=== PATIENT | male | born 1940 | race Caucasian/White ===

== ENCOUNTER 2016-04-30 07:53 | Observation (INO) | payer MEDICARE, OTHER ==
[2016-04-30 08:53] LABS: ABSOLUTE BASOPHILS # (AUTO) 0.1 10^3/uL (0.0-0.2); ABSOLUTE EOSINOPHILS # (AUTO) 0.2 10^3/uL (0.0-0.6); ABSOLUTE LYMPHOCYTES (AUTO) 1.2 10^3/uL (0.5-4.7); ABSOLUTE MONOCYTES (AUTO) 1.2 10^3/uL (0.1-1.4); ABSOLUTE NEUT (AUTO) 6.6 10^3/uL (1.7-8.2); BASOPHILS % (AUTO) 0.7 % (0-2); HEMOGLOBIN 13.2 g/dL (13.5-17.0); HGB HCT DIFFERENCE -0.4; LYMPHOCYTES % (AUTO) 13.2 % (13-45); MEAN CORPUSCULAR HEMOGLOBIN 30.7 pg (27.0-33.4); MEAN CORPUSCULAR VOLUME 93 fl (80-97); MONOCYTES % (AUTO) 13.1 % (3-13); RED CELL DISTRIBUTION WIDTH 14.5 % (11.5-14.0); WHITE BLOOD COUNT 9.3 10^3/uL (4.0-10.5)
[2016-04-30 09:16] LABS: ALANINE AMINOTRANSFERASE 35 U/L (21-72); ALKALINE PHOSPHATASE 110 U/L (38-126); ANION GAP 10 (5-19); ASPARTATE AMINO TRANSFERASE 36 U/L (17-59); BILIRUBIN,TOTAL 0.7 mg/dL (0.2-1.3); BLOOD UREA NITROGEN 27 mg/dL (7-20); CALCIUM 9.1 mg/dL (8.4-10.2); CARBON DIOXIDE 32 mmol/L (22-30); CHLORIDE 101 mmol/L (98-107); CREATINE KINASE 22 U/L (55-170); CREATININE RESULT 1.03 mg/dL (0.52-1.25); GLUCOSE 98 mg/dL (75-110); POTASSIUM 4.2 mmol/L (3.6-5.0); SODIUM 143.3 mmol/L (137-145); TOTAL PROTEIN 7.2 g/dL (6.3-8.2)
[2016-04-30] MEDS ORDERED: ASPIRIN 81 MG TABLET, CHEWABLE PO ONE (09:18)
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
[2016-04-30 09:29] LABS: TROPONIN I < 0.012 ng/mL
--- NOTE | 2016-04-30 10:22 | EKG REPORT ---
SEVERITY:- ABNORMAL ECG - ACCELERATED JUNCTIONAL RHYTHM, VS PAT WITH 2:1 CONDITION PROLONGED QT INTERVAL : Confirmed by: Huang Green 30-Apr-2016 10:22:23
[2016-04-30] MEDS ORDERED: METOPROLOL TARTRATE PF/INJ 5 MG/5 ML SDV IV ONE (16:22)
[2016-04-30] MEDS ORDERED: DILTIAZEM HCL INJ 25 MG/5 ML VIAL IV ONE (16:59)
[2016-04-30 17:31] LABS: ADD ON TESTING BLD IN LAB ACKNOWLEDGE
--- NOTE | 2016-04-30 17:44 | EKG REPORT ---
SEVERITY:- ABNORMAL ECG - SINUS OR ECTOPIC ATRIAL TACHYCARDIA CONSIDER RVH OR POSTERIOR INFARCT PROBABLE INFERIOR INFARCT, OLD BORDERLINE PROLONGED QT INTERVAL : Confirmed by: Huang Green 30-Apr-2016 17:43:13
[2016-04-30 17:54] LABS: MAGNESIUM 2.1 mg/dL (1.6-2.3)
[2016-04-30] MEDS ORDERED: ACETAMINOPHEN 325 MG TABLET PO PRN (18:02)
--- NOTE | 2016-04-30 18:31 | PDOC H&P ---
History of Present Illness Admission Date/PCP: 04/30/16 17:44 DANICA LEPE MD Patient complains of: Fast heart rate History of Present Illness: SAMIR NORTH is a 75 year old male who has a history of coronary artery disease as well as atrial fibrillation and flutter who presents with palpitations. The patient reports he woke up at 3:00 this morning with palpitations and noted heart rate be 105. The patient reportedly continued and at 6:00 he woke his and came to the hospital. Patient has had persistently heart high heart rate of 105 since presented to emergency room. He denies having any chest pain or he describes a hollow feeling. Patient does have a history of coronary artery disease and had his last PTCA in October 2015. Patient also is had problems with cardiac arrhythmias and has had cardiac ablation 2 times previously and has been cardioverted also in the past. The patient reports that he has had problems with what sounds like sick sinus syndrome and that his sotalol dose was decreased because of significant bradycardia and he was previously on 120 mg twice a day and this was decreased in the summertime to 80 mg twice a day. The patient has had cardiac enzymes 2 already and they are negative. Patient will be admitted and his sotalol dose increased up. If he develops significant bradycardia would transfer for consideration of a pacemaker however if his heart rate stays under control we will plan on sending home in the morning. Past Medical History Cardiac Medical History: Reports: Atrial Fibrillation - Paroxysmal atrial flutter, Coronary Artery Disease - Last PTCA done in October of this year, Hyperlipidema, Hypertension - off meds per pcp, Other - Hx Atrial Flutter Pulmonary Medical History: Reports: Chronic Obstructive Pulmonary Disease (COPD) EENT Medical History: Reports: Cataracts Neurological Medical History: Reports: None Endocrine Medical History: Reports: Other - Patient reports having prediabetes Renal/ Medical History: Reports: None Malignancy Medical History: Reports: None GI Medical History: Reports: Gastroesophageal Reflux Disease Musculoskeltal Medical History: Reports: Arthritis Skin Medical History: Reports: None Traumatic Medical History: Reports: None Hematology: Denies: Anemia, Sickle Cell Disease Infectious Medical History: Reports: None Past Surgical History Past Surgical History: Reports: Cholecystectomy, Orthopedic Surgery - bilat hips , rotator cuffs, back, knees, neck, carpal tunnel, big toe, Tonsillectomy Denies: Pacemaker Social History Information Source: Patient Lives with: Spouse/Significant other Smoking Status: Former Smoker - 30 years ago Frequency of Alcohol Use: None Hx Recreational Drug Use: No Drugs: None - Advance Directive Resuscitation Status: Full Code Family History Family History: Father at age 71 and had diabetes mellitus and coronary artery disease. Mother at age 91 and had diabetes mellitus as well as a CVA. Parental Family History Reviewed: Yes Children Family History Reviewed: No Sibling(s) Family History Reviewed.: No Medication/Allergy Home Medications: Allopurinol [Zyloprim 300 mg Tablet] 300 mg PO DAILY 05/26/11 Amlodipine/Atorvast Aleksander [Caduet 5 mg-40 mg Tablet] 1 tab PO DAILY 05/26/11 Cetirizine HCl [Zyrtec] 10 mg PO DAILY 05/26/11 Docosahexanoic Acid/Epa [Fish Oil Softgel] 1 cap PO DAILY 05/26/11 Esomeprazole Mag Trihydrate [Nexium] 40 mg PO DAILY 05/26/11 Furosemide [Lasix 40 mg Tablet] 40 mg PO DAILY 05/26/11 Gabapentin [Neurontin 300 mg Capsule] 300 mg PO TID 05/26/11 Levothyroxine Sodium [Synthroid 50 Mcg Tablet] 25 mcg PO DAILY 05/26/11 Metoprolol Tartrate [Lopressor 100 mg Tablet] 100 mg PO BID 05/26/11 Olmesartan Medoxomil [Benicar] 40 mg pe PO DAILY 05/26/11 Vitamin B Complex [B Complex] 1 cap PO DAILY 05/26/11 Sotalol HCl [Sotalol] 80 BID 04/30/16 Allergies/Adverse Reactions: clonidine Allergy (Severe, Verified 08/07/13 14:45) dicyclomine HCl [From Bentyl] Allergy (Severe, Verified 08/07/13 14:45) Review of Systems Constitutional: PRESENT: weight loss - Patient has lost weight over the last several months but this has been intentional.. ABSENT: chills, fever(s), headache(s), weight gain Eyes: ABSENT: visual disturbances Ears: ABSENT: hearing changes Cardiovascular: PRESENT: as per HPI, palpitations. ABSENT: dyspnea on exertion , edema, orthropnea Respiratory: ABSENT: cough, hemoptysis Gastrointestinal: ABSENT: abdominal pain, constipation, diarrhea, hematemesis, hematochezia, nausea, vomiting Genitourinary: ABSENT: dysuria, hematuria Musculoskeletal: PRESENT: back pain Integumentary: ABSENT: rash, wounds Neurological: ABSENT: abnormal gait, abnormal speech, confusion, dizziness, focal weakness, syncope Psychiatric: ABSENT: anxiety, depression Endocrine: ABSENT: cold intolerance, heat intolerance, polydipsia, polyuria Hematologic/Lymphatic: ABSENT: easy bleeding, easy bruising Physical Exam Vital Signs: Temp Pulse Resp BP Pulse Ox 20 123/98 H 97 04/30/16 16:01 04/30/16 16:01 04/30/16 16:01 General appearance: PRESENT: no acute distress, hard of hearing Head exam: PRESENT: atraumatic, normocephalic Eye exam: PRESENT: conjunctiva pink, EOMI, PERRLA. ABSENT: scleral icterus Ear exam: PRESENT: normal external ear exam Mouth exam: PRESENT: moist, tongue midline Neck exam: ABSENT: carotid bruit, JVD, lymphadenopathy, thyromegaly Respiratory exam: PRESENT: clear to auscultation augustina. ABSENT: rales, rhonchi, wheezes Cardiovascular exam: ABSENT: diastolic murmur, rubs, systolic murmur Pulses: PRESENT: normal dorsalis pedis pul Vascular exam: PRESENT: normal capillary refill GI/Abdominal exam: PRESENT: normal bowel sounds, soft. ABSENT: distended, guarding, mass, organolmegaly, rebound, tenderness Rectal exam: PRESENT: deferred Extremities exam: ABSENT: calf tenderness, clubbing, pedal edema Neurological exam: PRESENT: alert, awake, oriented to person, oriented to place , oriented to time, oriented to situation, CN II-XII grossly intact. ABSENT: motor sensory deficit Psychiatric exam: PRESENT: appropriate affect Skin exam: PRESENT: dry, intact, warm. ABSENT: cyanosis, rash Results Impressions: Chest X-Ray 04/30/16 08:31 IMPRESSION: Minimal left basilar densities as noted above. Visualized lung gonzalez are otherwise clear. Other findings as noted above Assessment & Plan - Diagnosis (1) AV junctional tachycardia Is this a current diagnosis for this admission?: YesPlan: The patient received IV Lopressor as well as IV diltiazem emergency room and continues to have a fast heart rate. The patient has had two negative cardiac enzymes and has ruled out. The patient had his sotalol decreased earlier this year. We will go ahead and increase his sotalol 120 mg twice a day and see if that will control his heart rate. If his heart rate drops too low after this we may need to transfer for consideration of a pacemaker. Like the patient may actually have sick sinus syndrome. He has had ablation 2 and has had problems both with tachycardia and bradycardia by his report. The initial medication list was incorrect. The patient has not been on Lopressor for over a year. He has been on sotalol for his beta-blockade. (2) Atrial flutter Is this a current diagnosis for this admission?: YesPlan: Patient has history of A. fib and a flutter previously. He has not had any episodes that while here at our hospital. We will monitor on telemetry overnight. (3) Coronary artery disease Qualifiers: Coronary Disease-Associated Artery/Lesion type: unspecified vessel or lesion type [place] vs. transplanted heart: [place] heart Associated angina: with unspecified angina Qualified Code(s): I25.119 - Atherosclerotic heart disease of [place] coronary artery with unspecified angina pectoris Is this a current diagnosis for this admission?: YesPlan: Patient has had 2 negative cardiac enzymes. He normally takes Plavix for his coronary artery disease. He has a history of having PTCA in October of this year. (4) Hypertension Is this a current diagnosis for this admission?: YesPlan: Blood pressure has been under good control. (5) Hyperlipidemia Is this a current diagnosis for this admission?: YesPlan: Patient has taken Lipitor for hyperlipidemia. - Time Time Spent: 50 to 70 Minutes - Plan Summary Plan Summary: Corrected medication list: #1. Synthroid 25 g by mouth daily. #2. Neurontin 300 mg by mouth 3 times a day. #3. Fish oil 1 capsule daily. #4. Lipitor 40 mg by mouth daily. #5. Allopurinol 300 mg by mouth daily. #6. Sotalol 80 mg by mouth twice a day. #7. Plavix 75 mg by mouth daily. #8. Nexium 40 mg by mouth daily. Will admit as observation for evaluation of his tachycardia.
[2016-04-30] MEDS: GABAPENTIN 300 MG CAPSULE PO SCH (21:23)
[2016-04-30] MEDS ORDERED: SOTALOL HCL 80 MG TABLET PO SCH (22:00)
[2016-04-30] MEDS ORDERED: ATORVASTATIN CALCIUM 40 MG TABLET PO SCH (22:00)
[2016-05-01] MEDS: GABAPENTIN 300 MG CAPSULE PO SCH (06:20)
[2016-05-01 06:36] LABS: HEMATOCRIT 38.6 % (37.9-51.0); HEMOGLOBIN 12.6 g/dL (13.5-17.0); HGB HCT DIFFERENCE -0.8; MEAN CORPUSCULAR HEMOGLOBIN 30.6 pg (27.0-33.4); MEAN CORPUSCULAR HGB CONC 32.7 g/dL (32.0-36.0); MEAN CORPUSCULAR VOLUME 93 fl (80-97); RED BLOOD COUNT 4.14 10^6/uL (4.35-5.55); RED CELL DISTRIBUTION WIDTH 14.7 % (11.5-14.0); WHITE BLOOD COUNT 8.7 10^3/uL (4.0-10.5)
[2016-05-01 06:58] LABS: ANION GAP 9 (5-19); BLOOD UREA NITROGEN 23 mg/dL (7-20); CARBON DIOXIDE 26 mmol/L (22-30); CHLORIDE 104 mmol/L (98-107); CREATININE RESULT 0.97 mg/dL (0.52-1.25); GLUCOSE 111 mg/dL (75-110); MAGNESIUM 2.1 mg/dL (1.6-2.3); POTASSIUM 4.3 mmol/L (3.6-5.0); SODIUM 139.3 mmol/L (137-145)
[2016-05-01] MEDS ORDERED: LEVOTHYROXINE SODIUM 0.025 MG TABLET PO SCH (08:00)
[2016-05-01 08:47] VITALS: BP 128/77
[2016-05-01] MEDS ORDERED: DOCOSAHEXANOIC ACID PO SCH (10:00)
[2016-05-01] MEDS ORDERED: ALLOPURINOL 300 MG TABLET PO SCH (10:00)
[2016-05-01] MEDS ORDERED: LEVOTHYROXINE SODIUM 0.05 MG TABLET PO SCH (10:00)
[2016-05-01] MEDS ORDERED: CLOPIDOGREL BISULFATE 75 MG TABLET PO SCH (10:00)
[2016-05-01] MEDS ORDERED: FUROSEMIDE 40 MG TABLET PO SCH (10:00)
[2016-05-01] MEDS ORDERED: MULTIVIT-STRESS FORMULA/ZINC TABLET PO SCH (10:00)
[2016-05-01] MEDS ORDERED: OMEGA-3 ACID ETHYL ESTERS 1 GM CAPSULE PO SCH (10:00)
[2016-05-01] MEDS ORDERED: (PENDING PHARMACY ID) (Vitamin B Complex [B Complex] 1 CAP) PO SCH (10:00)
[2016-05-01] MEDS ORDERED: EPA PO SCH (10:00)
--- NOTE | 2016-05-01 10:26 | PDOC DISCHARGE SUMMARY ---
General - Admit/Disc Date/PCP Admission Date/Primary Care Provider: 04/30/16 18:02 DANICA LEPE MD Discharge Date: 05/01/16 - Discharge Diagnosis (1) AV junctional tachycardia Is this a current diagnosis for this admission?: YesSummary: Probably has sick sinus syndrome. (2) Atrial flutter Is this a current diagnosis for this admission?: Yes (3) Coronary artery disease Is this a current diagnosis for this admission?: Yes (4) Hypertension Is this a current diagnosis for this admission?: Yes (5) Hyperlipidemia Is this a current diagnosis for this admission?: Yes - Additional Information Resuscitation Status: Full Code Discharge Diet: Cardiac Discharge Activity: Activity As Tolerated Home Medications: Allopurinol [Zyloprim 300 mg Tablet] 300 mg PO DAILY 04/30/16 Atorvastatin Calcium [Lipitor 40 mg Tablet] 40 mg PO QHS 04/30/16 Cetirizine HCl [Zyrtec 10 mg Tablet] 10 mg PO DAILY 04/30/16 Esomeprazole Magnesium [Nexium] 20 mg PO DAILY 04/30/16 Fish Oil/Dha/Epa [Fish Oil 1,200 mg Fish Oil] 1 cap PO DAILY 04/30/16 Furosemide [Lasix 40 mg Tablet] 40 mg PO DAILY 04/30/16 Gabapentin [Neurontin 300 mg Capsule] 300 mg PO Q8 04/30/16 Levothyroxine Sodium [Synthroid 0.05 mg Tablet] 25 mcg PO DAILY 04/30/16 Sotalol HCl [Betapace] 120 mg PO Q12 04/30/16 Vitamin B Complex [B Complex] 1 cap PO DAILY 04/30/16 History of Present Illness History of Present Illness: SAMIR NORTH is a 75 year old male who has a history of coronary artery disease as well as atrial fibrillation and flutter who presents with palpitations. The patient reports he woke up at 3:00 this morning with palpitations and noted heart rate be 105. The patient reportedly continued and at 6:00 he woke his and came to the hospital. Patient has had persistently heart high heart rate of 105 since presented to emergency room. He denies having any chest pain or he describes a hollow feeling. Patient does have a history of coronary artery disease and had his last PTCA in October 2015. Patient also is had problems with cardiac arrhythmias and has had cardiac ablation 2 times previously and has been cardioverted also in the past. The patient reports that he has had problems with what sounds like sick sinus syndrome and that his sotalol dose was decreased because of significant bradycardia and he was previously on 120 mg twice a day and this was decreased in the summertime to 80 mg twice a day. The patient has had cardiac enzymes 2 already and they are negative. Patient will be admitted and his sotalol dose increased up. If he develops significant bradycardia would transfer for consideration of a pacemaker however if his heart rate stays under control we will plan on sending home in the morning. Hospital Course Hospital Course: 75-year-old gentleman whose had cardiac ablations twice previously presented with tachycardia. The patient's sotalol was increased from 8o to 120 mg twice a day and his tachycardia resolved. He previously had problems with bradycardia on this same dose of sotalol. Because of this he most likely has sick sinus syndrome. The patient is stable and asymptomatic is felt that he could follow-up as an outpatient with his research and development manager. Patient did have some chest discomfort and had cardiac enzymes 2 that were negative. Patient's other medical problems were stable during this hospitalization. Physical Exam Vital Signs: Temp Pulse Resp BP Pulse Ox 98.0 F 57 L 16 107/58 L 97 05/01/16 08:18 05/01/16 08:18 05/01/16 08:18 05/01/16 08:18 05/01/16 08:18 Intake & Output 04/30/16 05/01/16 05/02/16 06:59 06:59 06:59 Intake Total 405 Balance 405 Weight 100.1 kg General appearance: PRESENT: no acute distress Eye exam: PRESENT: conjunctiva pink Mouth exam: PRESENT: moist, tongue midline Neck exam: ABSENT: JVD Respiratory exam: PRESENT: clear to auscultation augustina. ABSENT: rales, rhonchi, wheezes Cardiovascular exam: PRESENT: RRR. ABSENT: diastolic murmur, rubs, systolic murmur GI/Abdominal exam: PRESENT: normal bowel sounds, soft. ABSENT: distended, guarding, mass, organolmegaly, rebound, tenderness Extremities exam: ABSENT: calf tenderness, clubbing, pedal edema Neurological exam: PRESENT: alert, awake, oriented to person, oriented to place , oriented to time, oriented to situation Psychiatric exam: PRESENT: appropriate affect Skin exam: PRESENT: dry, intact, warm. ABSENT: cyanosis, rash Results Laboratory Results: 05/01/16 06:02 05/01/16 06:02 05/01/16 05/01/16 06:02 06:02 WBC 8.7 RBC 4.14 L Hgb 12.6 L Hct 38.6 MCV 93 MCH 30.6 MCHC 32.7 RDW 14.7 H Plt Count 180 Sodium 139.3 Potassium 4.3 Chloride 104 Carbon Dioxide 26 Anion Gap 9 BUN 23 H Creatinine 0.97 Est GFR ( Amer) > 60 Est GFR (Non-Af Amer) > 60 Glucose 111 H Calcium 9.0 Magnesium 2.1 Impressions: Chest X-Ray 04/30/16 08:31 IMPRESSION: Minimal left basilar densities as noted above. Visualized lung gonzalez are otherwise clear. Other findings as noted above Qualifiers PATEINT BEING DISCHARGED WITH ANY OF THE FOLLOWING DIAGNOSIS?: No Plan Discharge Plan: Patient is discharged home in stable condition. He will follow-up with his research and development manager and primary care doctor the next 1-2 weeks. Time Spent: Less than 30 Minutes
== END 2016-05-01 09:00 | disposition home or self-care (01) ==
LOC: ER 07:53 → EH 17:44 → UNDOADMOB 17:44 → EH 18:02 → 5 20:16
PROVIDERS: ADMIT Emergency Medicine; ATTEND Emergency Medicine
DX: I47.1 Supraventricular tachycardia (principal); I48.92 Unspecified atrial flutter; I10 Essential (primary) hypertension; E78.5 Hyperlipidemia, unspecified; J44.9 Chronic obstructive pulmonary disease, unspecified; R73.03 Prediabetes; K21.9 Gastro-esophageal reflux disease without esophagitis; M19.90 Unspecified osteoarthritis, unspecified site; I25.119 Atherosclerotic heart disease of native coronary artery with unspecified angina pectoris; Z87.891 Personal history of nicotine dependence
CPT/HCPCS: 93005; 99285; 96374; 96375; 36415 ×2; 82553; 82550; 83735 ×2; 85025; 85027; 80048; 80053; 84484; 71010; 93010; G0378 ×3; A9270 ×6; J3490 ×4

== ENCOUNTER 2017-06-06 08:49 | Day surgery (SDC) | payer MEDICARE, OTHER ==
[~2017-06-06 08:49] MED LIST: PROPOFOL INJ 200 MG/20 ML VIAL IV ONE
[2017-06-06 11:03] VITALS: BP 117/87
--- NOTE | 2017-06-06 12:59 | Operative Report ---
Operative Report DATE OF SURGERY: 06/06/17 Operative Report: The risks, benefits and alternatives of the procedure including risks of bleeding, perforation requiring surgery are explained to the patient in detail and informed consent was obtained. Timeout was called. Patient is brought back to the endoscopy suite. Propofol medications administered. A rectal examination was done which did not reveal any masses, tears or fissures. An Olympus videoscope was inserted into the patient's rectum. The scope was then carefully advanced all the way to the cecum. The cecum was identified by the usual anatomical landmarks including the ileocecal valve as well as the appendiceal office. Photodocumentation is obtained. The scope was then sequentially pulled back via the various segments of the colon including the ascending colon, hepatic flexure, transverse colon, splenic flexure, descending colon and finding to the rectosigmoid portions of the colon. Retroflexion maneuvers performed. PREOPERATIVE DIAGNOSIS: Personal history of polyp POSTOPERATIVE DIAGNOSIS: Hepatic flexure polyp removed via snare polypectomy. Diverticulosis. Internal hemorrhoids OPERATION: Colonoscopy with snare polypectomy SURGEON: ALEAH CAMPOS ANESTHESIA: LMAC TISSUE REMOVED OR ALTERED: As noted above. COMPLICATIONS: None. ESTIMATED BLOOD LOSS: None. INTRAOPERATIVE FINDINGS: As noted above. PROCEDURE: Patient tolerated procedure well. No immediate postprocedure complications are noted. Patient discharged in good condition. Discharge date 06/06/2017. Discharge diet: Regular. Discharge activity: Regular. 2-3 week follow-up to discuss findings. Patient is instructed to call the office or proceed to the emergency room should there be any further problems or questions. 3 year surveillance colonoscopy. We will await pathology.
== END 2017-06-06 10:45 | disposition home or self-care (01) ==
LOC: END 08:49
PROVIDERS: ATTEND Internal Medicine Gastroenterology
PROC: 0DBL8ZX Excision of Transverse Colon, Via Natural or Artificial Opening Endoscopic, Diagnostic (ICD-10-PCS; principal; 2017-06-06 11:00)
DX: Z12.11 Encounter for screening for malignant neoplasm of colon (principal); K63.5 Polyp of colon; K57.30 Diverticulosis of large intestine without perforation or abscess without bleeding; K64.8 Other hemorrhoids; J45.909 Unspecified asthma, uncomplicated; F17.210 Nicotine dependence, cigarettes, uncomplicated; M06.39 Rheumatoid nodule, multiple sites; E11.9 Type 2 diabetes mellitus without complications
CPT/HCPCS: 45388; J2704; 812

== ENCOUNTER 2017-08-03 23:47 | Emergency (ER) | payer MEDICARE, OTHER ==
[2017-08-04] MEDS ORDERED: DIPHENHYDRAMINE HCL 50 MG/ML VIAL IV ONE (01:49)
[2017-08-04] MEDS ORDERED: METOCLOPRAMIDE HCL INJ/PF 10 MG/2 ML SDV IV ONE (01:49)
[2017-08-04] MEDS ORDERED: KETOROLAC TROMETHAMINE INJ/PF 30 MG/1 ML SDV IV ONE (01:49)
[2017-08-04] MEDS ORDERED: NORMAL SALINE 1000 ML 1,000 ML IV ONE ×2 (01:50→02:50)
[2017-08-04] MEDS ORDERED: ONDANSETRON HCL INJ/PF 4 MG/2 ML SDV IV ONE (02:49)
--- NOTE | 2017-08-04 04:00 | ER Document Report ---
ED Headache - General Chief Complaint: Headache >24 hrs old Stated Complaint: HEADACHE Time Seen by Provider: 08/04/17 01:40 Mode of Arrival: Ambulatory Information source: Patient TRAVEL OUTSIDE OF THE [place] IN LAST 30 DAYS: No - HPI Patient complains to provider of: Headache Patient reports: Hx chronic headaches Onset: Yesterday Onset was: Gradual Timing: Worse Quality of pain: Achy, Pressure, Throbbing Severity: Moderate Pain Level: 4 Associated symptoms: Photophobia Exacerbated by: Light, Noise Similar symptoms previously: Yes Recently seen / treated by doctor: No Notes: Patient is a 76-year-old male presenting to the emergency room complaining of headache that started on Tuesday and has gradually worsened, there is pressure behind his right eye, he reports associated phono and photophobia but no nausea or vomiting, no fevers, no head injury, he has a history of similar headaches in the past year, usually it will go away after taking some Excedrin Migraine at home, occasionally he is required "shots of medication" - Related Data Allergies/Adverse Reactions: clonidine Allergy (Severe, Verified 08/04/17 00:24) dicyclomine HCl [From Bentyl] Allergy (Severe, Verified 08/04/17 00:24) TAPE Adverse Reaction (Uncoded 06/06/17 09:12) Past Medical History - General Information source: Patient - Social History Smoking Status: Former Smoker Chew tobacco use (# tins/day): No Frequency of alcohol use: Rare Drug Abuse: None Family History: Reviewed & Not Pertinent Patient has suicidal ideation: No Patient has homicidal ideation: No - Past Medical History Cardiac Medical History: Reports: Hx Atrial Fibrillation - Paroxysmal atrial flutter, Hx Coronary Artery Disease - Last PTCA done in October of this year, Hx Hypercholesterolemia, Hx Hypertension - off meds per pcp Denies: Hx Heart Attack - HAD PACEMAKER IN 04/25/16 Pulmonary Medical History: Reports: Hx Bronchitis, Hx COPD Denies: Hx Asthma, Hx Pneumonia Neurological Medical History: Denies: Hx Cerebrovascular Accident, Hx Seizures Renal/ Medical History: Denies: Hx Peritoneal Dialysis GI Medical History: Reports: Hx Gastroesophageal Reflux Disease. Denies: Hx Hepatitis, Hx Hiatal Hernia, Hx Ulcer Musculoskeltal Medical History: Reports Hx Arthritis Psychiatric Medical History: Denies: Hx Depression Infectious Medical History: Denies: Hx Hepatitis Past Surgical History: Reports: Hx Cardiac Surgery - 4 stents. most recent October 2015., Hx Cholecystectomy, Hx Open Heart Surgery - stents placed x3, Hx Orthopedic Surgery - bilat hips, rotator cuffs, back, knees, neck, carpal tunnel , big toe, Hx Tonsillectomy. Denies: Hx Pacemaker - Immunizations Hx Diphtheria, Pertussis, Tetanus Vaccination: Yes Hx Pneumococcal Vaccination: 05/17/11 Review of Systems - Review of Systems Constitutional: No symptoms reported EENT: No symptoms reported Cardiovascular: No symptoms reported Respiratory: No symptoms reported Gastrointestinal: No symptoms reported Genitourinary: No symptoms reported Male Genitourinary: No symptoms reported Musculoskeletal: No symptoms reported Skin: No symptoms reported Hematologic/Lymphatic: No symptoms reported Neurological/Psychological: Headaches -: Yes All other systems reviewed and negative Physical Exam - Vital signs Vitals: Temp Pulse Resp BP Pulse Ox 97.9 F 73 18 157/103 H 94 08/04/17 00:28 08/04/17 00:28 08/04/17 00:28 08/04/17 00:28 08/04/17 00:28 Interpretation: Normal - General General appearance: Appears well, Alert - HEENT Head: Normocephalic, Atraumatic Eyes: Normal Pupils: PERRL - Respiratory Respiratory status: No respiratory distress Chest status: Nontender Breath sounds: Normal Chest palpation: Normal - Cardiovascular Rhythm: Regular Heart sounds: Normal auscultation Murmur: No - Abdominal Inspection: Normal Distension: No distension Bowel sounds: Normal Tenderness: Nontender Organomegaly: No organomegaly - Back Back: Normal, Nontender - Extremities General upper extremity: Normal inspection, Nontender, Normal color, Normal ROM , Normal temperature General lower extremity: Normal inspection, Nontender, Normal color, Normal ROM , Normal temperature, Normal weight bearing. No: Mirian's sign - Neurological Neuro grossly intact: Yes Cognition: Normal Orientation: AAOx4 [place] Coma Scale Eye Opening: Spontaneous Andrzej Coma Scale Verbal: Oriented Andrzej Coma Scale Motor: Obeys Commands Andrzej Coma Scale Total: 15 Speech: Normal Motor strength normal: LUE, RUE, LLE, RLE Sensory: Normal - Psychological Associated symptoms: Normal affect, Normal mood - Skin Skin Temperature: Warm Skin Moisture: Dry Skin Color: Normal Course - Re-evaluation Re-evalutation: 08/04/17 04:04 Patient reports feeling much better after IV fluids and medications, headache is significantly improved and he has been able to get some rest while in the emergency department, symptoms consistent with likely cluster headache, patient discharged with prescriptions for Fioricet and Zofran as well as instructions for follow-up, advised to return if symptoms worsen, patient acknowledges understanding and agreement with this plan - Vital Signs Vital signs: Temp Pulse Resp BP Pulse Ox 97.9 F 73 18 157/103 H 94 08/04/17 00:28 08/04/17 00:28 08/04/17 00:28 08/04/17 00:28 08/04/17 00:28 Discharge - Discharge Clinical Impression: Headache Qualifiers: Headache type: cluster Headache chronicity pattern: episodic headache Intractability: not intractable Qualified Code(s): G44.019 - Episodic cluster headache, not intractable Condition: Stable Disposition: HOME, SELF-CARE Instructions: Cluster Headache ([facility]), Headache ([facility]) Additional Instructions: Follow up with your primary care provider in one to 2 days. Return to the emergency room immediately if symptoms worsen or any additional concerns. Prescriptions: Butalb/Acetaminophen/Caffeine [Fioricet (50-325-40 mg) Tablet] 1 - 2 tab PO Q4H #20 tab Ondansetron [Zofran Odt 4 mg Tablet] 1 - 2 tab PO Q4H #10 [email or web address] Referrals: DANICA LEPE MD [Primary Care Provider] - Follow up as needed
[2017-08-04 04:36] VITALS: BP 105/66
== END 2017-08-04 04:36 | disposition home or self-care (01) ==
LOC: ER 23:47
DX: G44.019 Episodic cluster headache, not intractable (principal); H53.149 Visual discomfort, unspecified; I25.10 Atherosclerotic heart disease of native coronary artery without angina pectoris; I10 Essential (primary) hypertension; J44.9 Chronic obstructive pulmonary disease, unspecified; Z88.8 Allergy status to other drugs, medicaments and biological substances; Z87.891 Personal history of nicotine dependence; Z95.5 Presence of coronary angioplasty implant and graft
CPT/HCPCS: 99284; 96361; 96374; 96375; J1200; J1885; J2765; J2405; J7030

== ENCOUNTER 2017-08-07 17:49 | Emergency (ER) | payer MEDICARE, OTHER ==
[2017-08-07] MEDS ORDERED: KETOROLAC TROMETHAMINE INJ/PF 30 MG/1 ML SDV IV ONE (18:18)
[2017-08-07] MEDS ORDERED: NORMAL SALINE 1000 ML 1,000 ML IV ONE (18:18)
[2017-08-07] MEDS ORDERED: METOCLOPRAMIDE HCL INJ/PF 10 MG/2 ML SDV IV ONE (18:19)
[2017-08-07] MEDS ORDERED: DIPHENHYDRAMINE HCL 50 MG/ML VIAL IV ONE (18:19)
--- NOTE | 2017-08-07 18:22 | ER Document Report ---
ED Medical Screen (RME) - General Chief Complaint: Headache Stated Complaint: HEADACHE Time Seen by Provider: 08/07/17 18:11 Notes: This 76-year-old male patient comes emergency room with a headache behind his right eye which is a pressure throbbing discomfort for the past 6 days. He was seen here on 08/03/2017 and got relief with IV Toradol, Benadryl, Reglan and fluids. He was discharged with prescription of Fioricet which he states is not helping. He saw his primary care provider on , Tuesday, Tuesday and received Toradol injections each of those days with relief of the pain. When the medicine would wear off the headache would return. He states he has not had a persistent headache like this in at least 35 years. He does have a long history of migraine headache but they usually go away with treatment and this one is much different. Is also noted to have a slight increase in his temperature today. I have greeted and performed a rapid initial assessment of this patient. A comprehensive ED assessment and evaluation of the patient, analysis of test results and completion of the medical decision making process will be conducted by additional ED providers. TRAVEL OUTSIDE OF THE [place] IN LAST 30 DAYS: No - Related Data Allergies/Adverse Reactions: clonidine Allergy (Severe, Verified 08/07/17 18:11) dicyclomine HCl [From Bentyl] Allergy (Severe, Verified 08/07/17 18:11) TAPE Adverse Reaction (Uncoded 08/07/17 18:11) Past Medical History - Social History Chew tobacco use (# tins/day): No Frequency of alcohol use: None Drug Abuse: None - Past Medical History Cardiac Medical History: Reports: Hx Atrial Fibrillation - Paroxysmal atrial flutter, Hx Coronary Artery Disease - Last PTCA done in October of this year, Hx Hypercholesterolemia, Hx Hypertension - off meds per pcp Denies: Hx Heart Attack - HAD PACEMAKER IN 04/25/16 Pulmonary Medical History: Reports: Hx Bronchitis, Hx COPD Denies: Hx Asthma, Hx Pneumonia Neurological Medical History: Denies: Hx Cerebrovascular Accident, Hx Seizures Renal/ Medical History: Denies: Hx Peritoneal Dialysis GI Medical History: Reports: Hx Gastroesophageal Reflux Disease. Denies: Hx Hepatitis, Hx Hiatal Hernia, Hx Ulcer Musculoskeltal Medical History: Reports Hx Arthritis Psychiatric Medical History: Denies: Hx Depression Infectious Medical History: Denies: Hx Hepatitis Past Surgical History: Reports: Hx Cardiac Surgery - 4 stents. most recent October 2015., Hx Cholecystectomy, Hx Open Heart Surgery - stents placed x3, Hx Orthopedic Surgery - bilat hips, rotator cuffs, back, knees, neck, carpal tunnel , big toe, Hx Tonsillectomy. Denies: Hx Pacemaker - Immunizations Hx Diphtheria, Pertussis, Tetanus Vaccination: Yes Influenza Administration Date for 01/2017 - 06/2017 Season: 01/23/17 Physical Exam - Vital signs Vitals: Temp Pulse Resp BP Pulse Ox 99.2 F 82 18 155/97 H 95 08/07/17 18:02 08/07/17 18:02 08/07/17 18:02 08/07/17 18:02 08/07/17 18:02 Course - Vital Signs Vital signs: Temp Pulse Resp BP Pulse Ox 99.2 F 82 18 155/97 H 95 08/07/17 18:02 08/07/17 18:02 08/07/17 18:02 08/07/17 18:02 08/07/17 18:02
--- NOTE | 2017-08-07 19:21 | RADIOLOGY REPORT (SQ) ---
EXAM DESCRIPTION: CT HEAD WITHOUT COMPLETED DATE/TIME: 08/07/2017 7:07 pm REASON FOR STUDY: Persistent headache COMPARISON: 2011 TECHNIQUE: Axial images acquired through the brain without intravenous contrast. Images reviewed wi th bone, brain and subdural windows. Additional sagittal and coronal reconstructions were generated. Images stored on PACS. All CT scanners at this facility use dose modulation, iterative reconstruction, and/or weight based d osing when appropriate to reduce radiation dose to as low as reasonably achievable (ALARA). [facility]: Dose Right [facility]: CareDose [facility]: Dose Right [facility]: Teradose 4D [facility]: Smart Adviqo RADIATION DOSE: CT Rad equipment meets quality standard of care and radiation dose reduction techniq ues were employed. CTDIvol: 53.2 mGy. DLP: 1017 mGy-cm. mGy. LIMITATIONS: None. FINDINGS: VENTRICLES: Normal size and contour. CEREBRUM: No masses. No hemorrhage. No midline shift. No evidence for acute infarction. Normal gra y/white matter differentiation. No areas of low density in the white matter. CEREBELLUM: No masses. No hemorrhage. No alteration of density. No evidence for acute infarction. EXTRAAXIAL SPACES: No fluid collections. No masses. ORBITS AND GLOBE: No intra- or extraconal masses. Normal contour of globe without masses. CALVARIUM: No fracture. PARANASAL SINUSES: Complete opacification of the sphenoid sinus and left maxillary sinus with signifi cant opacification of the ethmoid sinuses. SOFT TISSUES: No mass or hematoma. OTHER: No other significant finding. IMPRESSION: NORMAL BRAIN CT WITHOUT CONTRAST. Marked chronic sphenoid, left maxillary, ethmoid sinus disease. EVIDENCE OF ACUTE STROKE: NO. COMMENT: Quality ID # [id number]: Final reports with documentation of one or more dose reduction techniques (e.g., Automated exposure control, adjustment of the mA and/or kV according to patient size, use of iterative reconstruction technique) TECHNICAL DOCUMENTATION: JOB ID: [id number] [employer]- All Rights Reserved Reading location - IP/workstation name: [email or web address]
[2017-08-07 19:37] LABS: HEMATOCRIT 37.9 % (37.9-51.0); HEMOGLOBIN 12.6 g/dL (13.5-17.0); MEAN CORPUSCULAR HGB CONC 33.2 g/dL (32.0-36.0); MEAN CORPUSCULAR VOLUME 93 fl (80-97); PLATELET COUNT 247 10^3/uL (150-450); RED BLOOD COUNT 4.06 10^6/uL (4.35-5.55); RED CELL DISTRIBUTION WIDTH 14.2 % (11.5-14.0); WHITE BLOOD COUNT 14.7 10^3/uL (4.0-10.5)
[2017-08-07 20:13] LABS: ABSOLUTE LYMPHOCYTES# (MANUAL) 2.8 10^3/uL (0.5-4.7); ABSOLUTE NEUTROPHILS# (MANUAL) 10.3 10^3/uL (1.7-8.2); BAND NEUTROPHILS % (MANUAL) 2 % (3-5); EOSINOPHILS % (MANUAL) 4 % (0-6); LYMPHOCYTES % (MANUAL) 18 % (13-45); MONOCYTES % (MANUAL) 7 % (3-13); SEGMENTED NEUTROPHILS % (MAN) 68 % (42-78); TOTAL CELLS COUNTED 100
[2017-08-07] MEDS ORDERED: DEXAMETHASONE SOD PHOS INJ 10 MG/1 ML VIAL IV ONE (20:17)
[2017-08-07 20:18] LABS: ANISOCYTOSIS SLIGHT; OVALOCYTES SLIGHT; PLATELET COMMENT ADEQUATE; POIKILOCYTOSIS SLIGHT; TEAR DROP CELLS SLIGHT; TOXIC VACUOLATION PRESENT
[2017-08-07 20:22] LABS: BILIRUBIN,URINE NEGATIVE (NEGATIVE); COLOR,URINE YELLOW; GLUCOSE, URINE NEGATIVE (NEGATIVE); KETONES,URINE NEGATIVE (NEGATIVE); LEUKOCYTE ESTERASE,URINE NEGATIVE (NEGATIVE); NITRITE,URINE NEGATIVE (NEGATIVE); PROTEIN,URINE NEGATIVE (NEGATIVE); URINE SPECIFIC GRAVITY 1.015; UROBILINOGEN,URINE NEGATIVE mg/dL (<2.0)
[2017-08-07 20:24] LABS: ALANINE AMINOTRANSFERASE 17 U/L (21-72); ALBUMIN 3.9 g/dL (3.5-5.0); ALKALINE PHOSPHATASE 78 U/L (38-126); ANION GAP 11 (5-19); ASPARTATE AMINO TRANSFERASE 30 U/L (17-59); BILIRUBIN,DIRECT 0.2 mg/dL (0.0-0.4); BILIRUBIN,TOTAL 0.6 mg/dL (0.2-1.3); BLOOD UREA NITROGEN 22 mg/dL (7-20); CALCIUM 9.1 mg/dL (8.4-10.2); CARBON DIOXIDE 30 mmol/L (22-30); CHLORIDE 101 mmol/L (98-107); GLUCOSE 144 mg/dL (75-110); POTASSIUM 3.8 mmol/L (3.6-5.0); SODIUM 141.5 mmol/L (137-145); TOTAL PROTEIN 7.2 g/dL (6.3-8.2)
--- NOTE | 2017-08-07 20:24 | ER Document Report ---
ED General - General Chief Complaint: Headache Stated Complaint: HEADACHE Time Seen by Provider: 08/07/17 18:11 Notes: Patient is a 76-year-old male with a past medical history of hypertension, chronic headaches, who presents with 6 days of a constant, throbbing, aching headache to the right frontal and temporal scalp with associated throbbing and burning pain to his right eye. He denies any associated visual acuity changes to the right eye. He states while he does have a history of migraine headaches he has not had a true migraine headache in over 35 years. The patient was seen several days ago for the same, received a migraine cocktail and states that that somewhat improved his symptoms but the pain immediately returned. He has also followed up with his primary care doctor has been trying Toradol injections again with no significant resolution of his pain. He denies ever having a headache last to this degree of intensity or duration in the past. He denies any associated photophobia, phonophobia nausea or vomiting. No focal weakness, numbness, fever, limited neck range of motion or confusion. He denies any head trauma. TRAVEL OUTSIDE OF THE [place] IN LAST 30 DAYS: No - Related Data Allergies/Adverse Reactions: clonidine Allergy (Severe, Verified 08/07/17 18:11) dicyclomine HCl [From Bentyl] Allergy (Severe, Verified 08/07/17 18:11) TAPE Adverse Reaction (Uncoded 08/07/17 18:11) Past Medical History - General Information source: Patient - Social History Smoking Status: Never Smoker Chew tobacco use (# tins/day): No Frequency of alcohol use: None Drug Abuse: None Lives with: Spouse/Significant other Family History: Reviewed & Not Pertinent Patient has suicidal ideation: No Patient has homicidal ideation: No - Past Medical History Cardiac Medical History: Reports: Hx Atrial Fibrillation - Paroxysmal atrial flutter, Hx Coronary Artery Disease - Last PTCA done in October of this year, Hx Hypercholesterolemia, Hx Hypertension - off meds per pcp Denies: Hx Heart Attack - HAD PACEMAKER [place] 04/25/16 Pulmonary Medical History: Reports: Hx Bronchitis, Hx COPD Denies: Hx Asthma, Hx Pneumonia Neurological Medical History: Denies: Hx Cerebrovascular Accident, Hx Seizures Renal/ Medical History: Denies: Hx Peritoneal Dialysis GI Medical History: Reports: Hx Gastroesophageal Reflux Disease. Denies: Hx Hepatitis, Hx Hiatal Hernia, Hx Ulcer Musculoskeltal Medical History: Reports Hx Arthritis Psychiatric Medical History: Denies: Hx Depression Infectious Medical History: Denies: Hx Hepatitis Past Surgical History: Reports: Hx Cardiac Surgery - 4 stents. most recent October 2015., Hx Cholecystectomy, Hx Open Heart Surgery - stents placed x3, Hx Orthopedic Surgery - bilat hips, rotator cuffs, back, knees, neck, carpal tunnel , big toe, Hx Tonsillectomy. Denies: Hx Pacemaker - Immunizations Hx Diphtheria, Pertussis, Tetanus Vaccination: Yes Hx Pneumococcal Vaccination: 05/17/11 Review of Systems - Review of Systems Notes: Constitutional: Negative for fever. HENT: Negative for sore throat. Eyes: Positive for right eye pain Cardiovascular: Negative for chest pain. Respiratory: Negative for shortness of breath. Gastrointestinal: Negative for abdominal pain, vomiting or diarrhea. Genitourinary: Negative for dysuria. Musculoskeletal: Negative for back pain. Skin: Negative for rash. Neurological: Positive for headache 10 point ROS negative except as marked above and in HPI. Physical Exam - Vital signs Vitals: Temp Pulse Resp BP Pulse Ox 99.2 F 82 18 155/97 H 95 08/07/17 18:02 08/07/17 18:02 08/07/17 18:02 08/07/17 18:02 08/07/17 18:02 Interpretation: Hypertensive Notes: PHYSICAL EXAMINATION: GENERAL: Well-appearing, well-nourished and in no acute distress. HEAD: Atraumatic, normocephalic. Pain on palpation of the right temporal scalp. EYES: Pupils equal round and reactive to light, extraocular movements intact, sclera anicteric, conjunctiva are normal. ENT: nares patent, oropharynx clear without exudates. Moist mucous membranes. NECK: Normal range of motion, supple without lymphadenopathy LUNGS: Breath sounds clear to auscultation bilaterally and equal. No wheezes rales or rhonchi. HEART: Regular rate and rhythm without murmurs ABDOMEN: Soft, nontender, normoactive bowel sounds. No guarding, no rebound. No masses appreciated. EXTREMITIES: Normal range of motion, no pitting or edema. No cyanosis. NEUROLOGICAL: Face symmetric. Tongue protrudes midline. Extraocular motions intact. Pupils are 2 mm and equally reactive. Normal speech, normal gait. 5 out of 5 strength in both the distal and proximal upper and lower extremities bilaterally. Sensation is grossly intact throughout. Finger to nose testing normal. Pronator drift normal. PSYCH: Normal mood, normal affect. SKIN: Warm, Dry, normal turgor, no rashes or lesions noted. Course - Re-evaluation Re-evalutation: 08/07/17 20:18 Patient presents with 6 days of a chronic headache mostly focused on the right temporoparietal aspect of his scalp with associated burning and pressure to his right eye. Patient was seen several days ago for the same, received a migraine cocktail and states that he had improvement of the pain but it returned shortly after the medicines wore off. He has been trying Fioricet at home without any relief. The patient has no focal neurologic deficits on examination, and a stroke scale is 0. A CT the head was obtained in triage and is noted to be unremarkable without any evidence of bleeds or masses. Patient does not have any infectious symptoms to suggest a systemic illness as the etiology of his headache. Given his age I think it would be very atypical for him to be having an acute migraine. My primary concern is that the patient may be developing acute temporal arteritis given the location of his pain as well as discomfort to the right eye. This is likewise supported by his elevation of ESR and CRP. I discussed this likely diagnosis with the patient at length and we have agreed to initiate steroid therapy here in the emergency department with an understanding that he needs to follow-up urgently with his primary care doctor for referral for temporal artery biopsy. An alternative consideration would be a dural venous sinus thrombosis but I again have a low clinical suspicion for this given that the patient is able to get relief with analgesic medications, it is a unilateral headache, and he has no risk factors or prior history of thrombotic disease. However I have likewise discussed this possible diagnosis with the patient and given my inability to obtain an MRI here in the emergency department I have instructed him that should his pain fail to begin to improve on steroids that he and his primary care doctor should discuss obtaining the study to further exclude this diagnosis. At this time will discharge with return precautions and follow-up recommendations. Verbal discharge instructions given a the bedside and opportunity for questions given. Medication warnings reviewed. Patient is in agreement with this plan and has verbalized understanding of return precautions and the need for primary care follow-up in the next 24-72 hours. - Vital Signs Vital signs: Temp Pulse Resp BP Pulse Ox 98.7 F 61 16 136/83 H 98 08/07/17 20:39 08/07/17 20:39 08/07/17 20:39 08/07/17 20:39 08/07/17 20:39 - Laboratory Result Diagrams: 08/07/17 18:45 08/07/17 19:40 Laboratory results interpreted by me: 08/07/17 08/07/17 08/07/17 18:45 18:45 18:45 WBC 14.7 H RBC 4.06 L Hgb 12.6 L RDW 14.2 H Band Neutrophils % 2 L Abs Neuts (Manual) 10.3 H ESR 77 H BUN Est GFR (Non-Af Amer) Glucose ALT C-Reactive Protein 139.7 H 08/07/17 19:40 WBC RBC Hgb RDW Band Neutrophils % Abs Neuts (Manual) ESR BUN 22 H Est GFR (Non-Af Amer) 58 L Glucose 144 H ALT 17 L C-Reactive Protein - Diagnostic Test Radiology reviewed: Image reviewed, Reports reviewed Radiology results interpreted by me: 08/08/17 03:06 CT head: No acute intracranial bleed or mass Discharge - Discharge Clinical Impression: Right-sided headache, Temporal arteritis Condition: Stable Disposition: HOME, SELF-CARE Additional Instructions: Based on your history and exam I am concerned that you have a diagnosis called temporal arteritis. This is an autoimmune inflammation of your temporal artery that can cause blindness if it is untreated. The treatment involves taking steroids. You have been given a dose of steroids here in the emergency department and will be discharged home on a seven-day course of steroids which your primary care doctor will need to continue if this diagnosis is confirmed as an outpatient. Generally, a biopsy of the artery is completed to definitively diagnose or exclude this concern. If you are not having improvement of your headache on steroids within the next several days to a week I encourage you to discuss considering getting an MRI/MRV with your primary care doctor to further exclude a diagnosis called a dural venous sinus thrombosis. While I think this diagnosis less likely if you are not having improvement on steroids it should be considered. Please return to the emergency department sooner if you develop persistent vomiting, worsening of your headache, weakness, numbness, confusion, fever greater than 100.4F, or any other symptoms that are worrisome to you. Prescriptions: Prednisone [Deltasone 20 mg Tablet] 3 tab PO DAILY 7 Days tablet Referrals: DANICA LEPE MD [Primary Care Provider] - Follow up tomorrow
[2017-08-07 20:26] LABS: APPEARANCE,URINE CLEAR
[2017-08-07 20:40] VITALS: BP 136/83
== END 2017-08-07 20:46 | disposition home or self-care (01) ==
LOC: ER 17:49
DX: M31.6 Other giant cell arteritis (principal); R51 Headache; H57.11 Ocular pain, right eye; I25.10 Atherosclerotic heart disease of native coronary artery without angina pectoris; I10 Essential (primary) hypertension; J44.9 Chronic obstructive pulmonary disease, unspecified
CPT/HCPCS: 99284; 96361; 96374; 96375; 36415; 87040; 85025; 85652; 86140; 80053; 81001; 70450; J1200; J1885; J2765; J7030; J1100

== ENCOUNTER → 2018-01-19 | Day surgery (SDC) | payer MEDICARE, OTHER ==
--- NOTE | 2018-01-19 10:31 | RADIOLOGY REPORT (SQ) ---
EXAM DESCRIPTION: ARTHRO SHOULDER INJECTION; FLUORO/NEEDLE PLACEMENT COMPLETED DATE/TIME: 01/19/2018 10:12 am REASON FOR STUDY: UNSP ROTATR-CUFF TEAR/RUPTR OF LEFT SHOULDER, NOT TRAUMA M75.102 UNSP ROTATR-CUFF TEAR/RUPTR OF LEFT SHOULDER, NOT TR COMPARISON: None. FLUOROSCOPY TIME: 17 seconds. 1 images saved to PACS. LIMITATIONS: None. PROCEDURE: Procedure, risks, benefits and alternative explained to patient who then gave written con sent. The left shoulder was marked and a time-out was called for correct marking verification. Post erior entry site marked using fluoroscopic guidance. Shoulder prepped and draped using sterile techn ique. Local anesthesia achieved using 1% lidocaine injection. 22 gauge spinal needle introduced into the joint space under direct fluoroscopic visualization. Non-ionic contrast instilled to confirm in tra-articular position. Additional dilute non-ionic contrast instilled. Needle removed and entry si te covered with sterile bandage. No immediate complications noted. TECHNIQUE: Digital images acquired during fluoroscopy and stored on PACS. Patient immediately take n to the CT suite for additional imaging. INJECTION LOCATION: Posterior left shoulder. CONTRAST TYPE AND AMOUNT: 1 mL Omnipaque and 10 mL Omnipaque saline mixture. IMPRESSION: SUCCESSFUL NEEDLE PLACEMENT AND INJECTION FOR LEFT SHOULDER CT ARTHROGRAM USING POSTERIO R APPROACH. COMMENT: Quality ID 145: Final reports for procedures using fluoroscopy that document radiation exp osure indices, or exposure time and number of fluorographic images (if radiation exposure indices are not available) TECHNICAL DOCUMENTATION: JOB ID: [id number] 1333 [employer]- All Rights Reserved Reading location - IP/workstation name: [facility]
--- NOTE | 2018-01-19 10:31 | RADIOLOGY REPORT (SQ) ---
EXAM DESCRIPTION: ARTHRO SHOULDER INJECTION; FLUORO/NEEDLE PLACEMENT COMPLETED DATE/TIME: 01/19/2018 10:12 am REASON FOR STUDY: UNSP ROTATR-CUFF TEAR/RUPTR OF LEFT SHOULDER, NOT TRAUMA M75.102 UNSP ROTATR-CUFF TEAR/RUPTR OF LEFT SHOULDER, NOT TR COMPARISON: None. FLUOROSCOPY TIME: 17 seconds. 1 images saved to PACS. LIMITATIONS: None. PROCEDURE: Procedure, risks, benefits and alternative explained to patient who then gave written con sent. The left shoulder was marked and a time-out was called for correct marking verification. Post erior entry site marked using fluoroscopic guidance. Shoulder prepped and draped using sterile techn ique. Local anesthesia achieved using 1% lidocaine injection. 22 gauge spinal needle introduced into the joint space under direct fluoroscopic visualization. Non-ionic contrast instilled to confirm in tra-articular position. Additional dilute non-ionic contrast instilled. Needle removed and entry si te covered with sterile bandage. No immediate complications noted. TECHNIQUE: Digital images acquired during fluoroscopy and stored on PACS. Patient immediately take n to the CT suite for additional imaging. INJECTION LOCATION: Posterior left shoulder. CONTRAST TYPE AND AMOUNT: 1 mL Omnipaque and 10 mL Omnipaque saline mixture. IMPRESSION: SUCCESSFUL NEEDLE PLACEMENT AND INJECTION FOR LEFT SHOULDER CT ARTHROGRAM USING POSTERIO R APPROACH. COMMENT: Quality ID 145: Final reports for procedures using fluoroscopy that document radiation exp osure indices, or exposure time and number of fluorographic images (if radiation exposure indices are not available) TECHNICAL DOCUMENTATION: JOB ID: [id number] [employer]- All Rights Reserved Reading location - IP/workstation name: [facility]
--- NOTE | 2018-01-20 08:28 | RADIOLOGY REPORT (SQ) ---
EXAM DESCRIPTION: CT LT UPPER EXTREMITY WITH COMPLETED DATE/TIME: 01/19/2018 10:18 am REASON FOR STUDY: UNSP ROTATR-CUFF TEAR/RUPTR OF LEFT SHOULDER, NOT TRAUMA M75.102 UNSP ROTATR-CUFF TEAR/RUPTR OF LEFT SHOULDER, NOT TR COMPARISON: None. TECHNIQUE: Axial imaging performed through the leftshoulder with reformatted oblique coronal and obl ique sagittal imaging windowed for bone and soft tissues. All CT scanners at this facility use dose modulation, iterative reconstruction, and/or weight based d osing when appropriate to reduce radiation dose to as low as reasonably achievable (ALARA). [facility]: Dose Right [facility]: CareDose [facility]: Dose Right [facility]: Teradose 4D [facility]: [employer] RADIATION DOSE: CT Rad equipment meets quality standard of care and radiation dose reduction techniq ues were employed. CTDIvol: 23.8 mGy. DLP: 557 mGy-cm. mGy. LIMITATIONS: None. FINDINGS: JOINT DISTENTION: Adequate. Loose bodies in the joint. SOFT TISSUES: No regional mass or axillary adenopathy. Nodular densities in the left upper lobe apex . Some of this looks like scar. Not seen in 2012 CT chest, however. BONY ARCHITECTURE: Osteopenic. Severe glenohumeral arthropathy with complete loss of the joint space . Associated osteophytes and subchondral cysts. Superior migration of the humeral head with complet e loss of the subacromial space. ACROMION AND AC JOINT: AC arthropathy, predominantly dorsal overgrowth. Remottling of the undersurfa ce of the acromion. ROTATOR CUFF: Full-thickness tear with loss of muscle bulk. Retraction is probably to the level of t he glenohumeral joint, difficult to further assess. GLENOID, LABRUM AND BICEPS: Indeterminate, poorly seen. Probably torn. Long head biceps tendon not reliably identified. This may also be torn. OTHER: This may also be torn. IMPRESSION: 1. Severe glenohumeral arthropathy. 2. Full-thickness cuff tear. 3. Poor assessment of the superior labrum, very difficult to visualize any normal persistent tissue. Biceps tendon also n ot seen. TECHNICAL DOCUMENTATION: JOB ID: [id number] Quality ID # 436: Final reports with documentation of one or more dose reduction techniques (e.g., Au tomated exposure control, adjustment of the mA and/or kV according to patient size, use of iterative reconstruction technique) 2010 [employer]- All Rights Reserved Reading location - IP/workstation name: [email or web address]
== END ==
LOC: RAD 09:27
PROVIDERS: ATTEND Physician Assistant
DX: M19.012 Primary osteoarthritis, left shoulder (principal); M75.122 Complete rotator cuff tear or rupture of left shoulder, not specified as traumatic
CPT/HCPCS: 23350; 77002

== ENCOUNTER → 2018-07-14 | Outpatient (CLI) | payer MEDICARE, OTHER ==
--- NOTE | 2018-07-14 09:22 | RADIOLOGY REPORT (SQ) ---
EXAM DESCRIPTION: CT CHEST WITHOUT COMPLETED DATE/TIME: 07/14/2018 8:59 am REASON FOR STUDY: SOLITARY PULMONARY NODULE R91.1 SOLITARY PULMONARY NODULE COMPARISON: Chest x-ray dated 04/30/2016, CTA chest dated 05/26/2011 TECHNIQUE: CT scan performed of the chest without intravenous contrast. Images reviewed with lung, soft tissue and bone windows. Reconstructed coronal and sagittal MPR images reviewed. All images st ored on PACS. All CT scanners at this facility use dose modulation, iterative reconstruction, and/or weight based d osing when appropriate to reduce radiation dose to as low as reasonably achievable (ALARA). [facility]: Dose Right [facility]: CareDose [facility]: Dose Right [facility]: Teradose 4D [facility]: [employer] RADIATION DOSE: CT Rad equipment meets quality standard of care and radiation dose reduction techniq ues were employed. CTDIvol: 17.7 mGy. DLP: 779 mGy-cm. mGy. LIMITATIONS: No technical limitations. FINDINGS: LUNGS AND PLEURA: There are nodules in the left apex which have spiculated borders. The l argest measures 1.9 cm. An adjacent nodule measures 1.2 cm in greatest dimensions. This could repre sent multiple small nodules which have coalesced. This could represent infectious or inflammatory pr ocess as well. This was not present in 2011. It is not identified on conventional radiographs from April 2016. There is some scarring along the right minor fissure best demonstrated on coronal and sagittal reconstructions. On axial images it has a nodular appearance. HILAR AND MEDIASTINAL STRUCTURES: No identified masses or abnormal nodes. No obvious aneurysm. HEART AND VASCULAR STRUCTURES: No aneurysm. No pericardial effusion. UPPER ABDOMEN: No significant findings. Limited exam. THYROID AND OTHER SOFT TISSUES: No masses. No adenopathy. BONES: No significant finding. HARDWARE: Battery pack and leads are in place. OTHER: No other significant findings. IMPRESSION: There are 2 dominant nodules in left apex the largest measures 1.9 cm. The smaller lesi on measures 1.2 cm. This could represent multiple small nodules which have coalesced. This could re present neoplasm. Infectious or inflammatory process is a possibility as well. Correlation with PET -CT is recommended. Nodular opacity in the right base is consistent with scarring along the right mi nor fissure. TECHNICAL DOCUMENTATION: JOB ID: [id number] Quality ID # 436: Final reports with documentation of one or more dose reduction techniques (e.g., Au tomated exposure control, adjustment of the mA and/or kV according to patient size, use of iterative reconstruction technique) 2010 [employer]- All Rights Reserved Reading location - IP/workstation name: [facility]
== END ==
LOC: RAD 08:33
PROVIDERS: ATTEND Family Medicine
DX: R91.1 Solitary pulmonary nodule (principal)
CPT/HCPCS: 71250

== ENCOUNTER → 2018-07-23 | Outpatient (CLI) | payer MEDICARE, OTHER ==
--- NOTE | 2018-07-24 14:08 | RADIOLOGY REPORT (SQ) ---
EXAM DESCRIPTION: PET CT SKULL/THIGH COMPLETED DATE/TIME: 07/23/2018 8:16 pm REASON FOR STUDY: R91.8 OTHER NONSPECIFIC ABNORMAL FINDING OF LUNG FIELD R91.8 OTHER NONSPECIFIC AB NORMAL FINDING OF LUNG FIELD COMPARISON: CT angio chest 12/01/2009, 05/26/2011 CT chest without contrast 07/14/2018 RADIONUCLIDE AND DOSE: 11.6 mCi F18 FDG The route of agent administration: Intravenous FASTING BLOOD SUGAR: 92 mg/dl CONTRAST TYPE AND DOSE: No CT contrast given. TECHNIQUE: Blood glucose level was verified. Above dose of FDG was injected intravenously. 2-D seg mented attenuation correction images were obtained from the base of the skull to the midthighs. Nonc ontrast CT images were obtained for attenuation correction and fusion with emission images. CT image s were performed without oral or intravenous contrast and are not sensitive for parenchymal lesions. A series of overlapping emission PET images were obtained. Images reviewed and manipulated at [facility] work station by the radiologist. Images stored on PACS. LIMITATIONS: None. FINDINGS: HEAD AND NECK: No areas of abnormal metabolic activity in the soft tissues of the head and neck. CHEST: At the left lung apex, lung parenchymal scarring is present with airspace disease nodules caleb uring about 1 cm and 2 cm in size. This likely represents postinflammatory change, SUV is tissue ran ges from 1.612.4 SUV. Remainder of the chest is otherwise unremarkable. No acute infiltrates. No adenopathy. No worrisom e pulmonary nodules. Non metabolic scarring in the right lateral costophrenic just above the right h emidiaphragm, with SUV of 0.8. Old healed adjacent right lower lateral rib fractures. ABDOMEN AND PELVIS: No areas of abnormal metabolic activity in the abdomen or pelvis. Expected physi ologic activity is present in the genitourinary system and bowel. PROXIMAL LOWER EXTREMITIES: No areas of abnormal metabolic activity in the soft tissues of the lower extremities. BONES: No abnormal metabolic activity in the visualized skeleton. ADDITIONAL CT FINDINGS: Sinusitis in the right frontal, bilateral maxillary, and left sphenoid sinus. There is arthritis at both shoulders left greater than right with synovial metabolic activity. Lef t-sided pacemaker. Very dense coronary artery calcification lung minimal ENT. Hiatal hernia. Post cholecystectomy. Lower lumbar degenerative disc changes with fusion hardware. Bilateral total hip r eplacements. OTHER: Liver background activity 2.8 SUV. Blood pool background activity 2.0 SUV IMPRESSION: Postinflammatory changes at in the left lung apex lung parenchyma, with metabolic activi ty below liver. These are probably benign. 1 year follow-up non contrasted CT chest recommended. TECHNICAL DOCUMENTATION: JOB ID: [id number] [employer]- All Rights Reserved Reading location - IP/workstation name: [email or web address]
== END ==
LOC: RAD 17:35
PROVIDERS: ATTEND Family Medicine
DX: R91.8 Other nonspecific abnormal finding of lung field (principal); J32.8 Other chronic sinusitis
CPT/HCPCS: 78815; A9552

== ENCOUNTER 2018-08-25 08:33 | Emergency (ER) | payer MEDICARE, OTHER ==
--- NOTE | 2018-08-25 10:15 | ER Document Report ---
ED General - General Chief Complaint: Cough Stated Complaint: COUGH Time Seen by Provider: 08/25/18 09:29 Primary Care Provider: DANICA LEPE MD [Primary Care Provider] - Follow up as needed Notes: 77-year-old male with a history of hypertension, chronic bronchitis, hypothyroid, a flutter (with pacemaker placement, on beta-kelsea/Plavix) who presents complaining of coughing up blood this morning. Patient states that he has been coughing pretty regularly for the past few months, seen here on 08/22 for the same problem presents to the emergency department after persistent symptoms that have gotten slightly worse. Patient had a chest CTA done after an elevated d-dimer on that date which was negative for any PE. Patient states that the blood does get worse shortly after eating and starts out as small and blunt tinged but then he will cough up clots and he will be coughing up ashlee bright red blood. It then turns to vianca sputum again. Patient is concerned because he has had a chronic cough since January 2018 and it is not improved. Patient denies fever, chills, nausea, vomiting, diarrhea, chest pain or shortness of breath, dizziness, lightheadedness, urinary symptoms. TRAVEL OUTSIDE OF THE [place] IN LAST 30 DAYS: No - Related Data Allergies/Adverse Reactions: clonidine Allergy (Severe, Verified 08/25/18 08:36) dicyclomine HCl [From Bentyl] Allergy (Severe, Verified 08/25/18 08:36) TAPE Adverse Reaction (Uncoded 08/25/18 08:36) Past Medical History - Social History Smoking Status: Former Smoker Frequency of alcohol use: None Drug Abuse: None Family History: Reviewed & Not Pertinent Patient has suicidal ideation: No Patient has homicidal ideation: No - Past Medical History Cardiac Medical History: Reports: Hx Atrial Fibrillation - Paroxysmal atrial flutter, Hx Coronary Artery Disease - Last PTCA done in October of this year, Hx Hypercholesterolemia, Hx Hypertension - off meds per pcp Comment Only: Hx Heart Attack - HAD PACEMAKER IN 04/25/16 Pulmonary Medical History: Reports: Hx Bronchitis, Hx COPD Denies: Hx Asthma, Hx Pneumonia Neurological Medical History: Denies: Hx Cerebrovascular Accident, Hx Seizures Renal/ Medical History: Denies: Hx Peritoneal Dialysis GI Medical History: Reports: Hx Gastroesophageal Reflux Disease. Denies: Hx Hepatitis, Hx Hiatal Hernia, Hx Ulcer Musculoskeletal Medical History: Reports Hx Arthritis Psychiatric Medical History: Denies: Hx Depression Infectious Medical History: Denies: Hx Hepatitis Past Surgical History: Reports: Hx Cardiac Surgery - 4 stents. most recent October 2015, watchman procedure, Hx Cholecystectomy, Hx Open Heart Surgery, Hx Orthopedic Surgery - bilat hips, rotator cuffs, back, knees, neck, carpal tunnel, big toe, b/l w, Hx Tonsillectomy. Denies: Hx Pacemaker - Immunizations Hx Diphtheria, Pertussis, Tetanus Vaccination: Yes Hx Pneumococcal Vaccination: 05/17/11 Review of Systems - Review of Systems Constitutional: See HPI EENT: No symptoms reported Cardiovascular: See HPI Respiratory: See HPI Gastrointestinal: See HPI Genitourinary: See HPI Male Genitourinary: No symptoms reported Musculoskeletal: No symptoms reported Skin: No symptoms reported Hematologic/Lymphatic: No symptoms reported Neurological/Psychological: No symptoms reported Physical Exam - Vital signs Vitals: Temp Pulse Resp BP Pulse Ox 97.6 F 65 18 164/95 H 94 08/25/18 08:43 08/25/18 08:43 08/25/18 08:43 08/25/18 08:43 08/25/18 08:43 - Notes Notes: PHYSICAL EXAMINATION: Reviewed vital signs and charting by RN GENERAL: Alert, interacts well. No acute distress. HEAD: Normocephalic, atraumatic. EYES: Pupils equal and round. Extraocular movements intact. ENT: Oral mucosa moist, tongue midline. NECK: Full range of motion. Supple. Trachea midline. LUNGS: Clear to auscultation bilaterally, no wheezes, rales, or rhonchi. No respiratory distress. HEART: Regular rate and rhythm. No murmur ABDOMEN: soft, non-tender. Non-distended. Bowel sounds present. no McBurney's point tenderness, no Martin sign. EXTREMITIES: Moves all 4 extremities spontaneously. No edema, No cyanosis. Normal distal neurovascular exam BACK: No CVAT NEUROLOGIC: Oriented and appropriate. Normal speech. PSYCH: Normal affect, normal mood. SKIN: Warm, dry, normal turgor. No rashes or lesions noted. Course - Re-evaluation Re-evalutation: 08/25/18 10:14 Overall well-appearing. Patient did show me blood in his sputum. She had a recent PET scan here which was negative but showed a couple of "small lesions". Unclear if this is pulmonary versus GI pathology. 08/25/18 11:49 I briefly discussed with Dr. Ibrahim and chronic bronchitis with this frequent of a cough can cause hemoptysis like this. I still cannot exclude a GI cause at this time. I will give him referral to gastroenterology. Patient's hemoglobin 11.6 which is stable from previous visits. I do not have concern for an acute GI bleed at this time. Patient is stable for discharge. - Vital Signs Vital signs: Temp Pulse Resp BP Pulse Ox 97.6 F 65 18 135/95 H 96 08/25/18 08:43 08/25/18 08:43 08/25/18 11:16 08/25/18 11:16 08/25/18 11:16 - Laboratory Result Diagrams: 08/25/18 11:11 08/25/18 11:11 Laboratory results interpreted by me: 08/25/18 08/25/18 11:11 11:11 RBC 3.83 L Hgb 11.6 L Hct 35.2 L RDW 16.4 H BUN 21 H ALT 19 L Discharge - Discharge Clinical Impression: Subacute bronchitis, Coughing up blood Condition: Good Disposition: HOME, SELF-CARE Additional Instructions: You were seen in the emergency department this morning for coughing up blood. Because you have had this chronic cough since January bronchitis is one of the most common causes of blood in your sputum. Your lab work was all reassuring and your hemoglobin did not change dramatically from previous. Because of this I have low concern for an upper GI bleed, but I still will give you referral to gastroenterology to see if they feel an upper endoscopy would be appropriate for you. In the meantime, if you take Zantac daily please continue to take it, or if you only take it periodically I suggest she take it every day until you talk to gastroenterology. If you develop severe chest pain, acute shortness of breath, you cough up a large amount of blood i.e. you fill up a cup, you become acutely dizzy or lightheaded, you pass out, you have bloody vomiting or bloody diarrhea please immediately return to the emergency department. Referrals: DANICA LEPE MD [Primary Care Provider] - Follow up as needed ANNE MARIE DANIELS MD [ACTIVE STAFF] - Follow up as needed
[2018-08-25 11:23] LABS: ABSOLUTE EOSINOPHILS # (AUTO) 0.1 10^3/uL (0.0-0.6); ABSOLUTE LYMPHOCYTES (AUTO) 1.3 10^3/uL (0.5-4.7); ABSOLUTE MONOCYTES (AUTO) 0.8 10^3/uL (0.1-1.4); ABSOLUTE NEUT (AUTO) 4.4 10^3/uL (1.7-8.2); BASOPHILS % (AUTO) 0.5 % (0-2); EOSINOPHILS % (AUTO) 2.1 % (0-6); HEMATOCRIT 35.2 % (37.9-51.0); HEMOGLOBIN 11.6 g/dL (13.5-17.0); LYMPHOCYTES % (AUTO) 19.7 % (13-45); MEAN CORPUSCULAR HEMOGLOBIN 30.3 pg (27.0-33.4); MEAN CORPUSCULAR HGB CONC 32.9 g/dL (32.0-36.0); MEAN CORPUSCULAR VOLUME 92 fl (80-97); MONOCYTES % (AUTO) 12.3 % (3-13); PLATELET COUNT 212 10^3/uL (150-450); RED BLOOD COUNT 3.83 10^6/uL (4.35-5.55); RED CELL DISTRIBUTION WIDTH 16.4 % (11.5-14.0); SEGMENTED NEUTROPHILS % (AUTO) 65.4 % (42-78); TOTAL CELLS COUNTED % (AUTO) 100 %; WHITE BLOOD COUNT 6.7 10^3/uL (4.0-10.5)
[2018-08-25 11:46] LABS: ALANINE AMINOTRANSFERASE 19 U/L (21-72); ALBUMIN 3.6 g/dL (3.5-5.0); ALKALINE PHOSPHATASE 90 U/L (38-126); ANION GAP 8 (5-19); ASPARTATE AMINO TRANSFERASE 23 U/L (17-59); BILIRUBIN,DIRECT 0.3 mg/dL (0.0-0.4); BILIRUBIN,TOTAL 0.8 mg/dL (0.2-1.3); BLOOD UREA NITROGEN 21 mg/dL (7-20); CALCIUM 9.3 mg/dL (8.4-10.2); CARBON DIOXIDE 28 mmol/L (22-30); CHLORIDE 104 mmol/L (98-107); GLUCOSE 97 mg/dL (75-110); POTASSIUM 3.6 mmol/L (3.6-5.0); SODIUM 140.1 mmol/L (137-145); TOTAL PROTEIN 6.8 g/dL (6.3-8.2)
[2018-08-25 12:57] VITALS: BP 146/96
== END 2018-08-25 12:30 | disposition home or self-care (01) ==
LOC: ER 08:33
DX: J20.9 Acute bronchitis, unspecified (principal); R04.2 Hemoptysis; I48.91 Unspecified atrial fibrillation; I25.10 Atherosclerotic heart disease of native coronary artery without angina pectoris; E78.00 Pure hypercholesterolemia, unspecified; Z90.49 Acquired absence of other specified parts of digestive tract
CPT/HCPCS: 36415; 80053; 85025; 99283

== ENCOUNTER → 2019-01-09 | Outpatient (CLI) | payer MEDICARE, OTHER ==
[2019-01-09 09:58] LABS: ABSOLUTE BASOPHILS # (AUTO) 0.1 10^3/uL (0.0-0.2); ABSOLUTE EOSINOPHILS # (AUTO) 0.2 10^3/uL (0.0-0.6); ABSOLUTE LYMPHOCYTES (AUTO) 1.5 10^3/uL (0.5-4.7); ABSOLUTE NEUT (AUTO) 3.6 10^3/uL (1.7-8.2); EOSINOPHILS % (AUTO) 3.8 % (0-6); HEMATOCRIT 35.9 % (37.9-51.0); HEMOGLOBIN 11.9 g/dL (13.5-17.0); LYMPHOCYTES % (AUTO) 23.5 % (13-45); MEAN CORPUSCULAR HEMOGLOBIN 30.3 pg (27.0-33.4); MEAN CORPUSCULAR HGB CONC 33.1 g/dL (32.0-36.0); MEAN CORPUSCULAR VOLUME 92 fl (80-97); PLATELET COUNT 204 10^3/uL (150-450); RED BLOOD COUNT 3.92 10^6/uL (4.35-5.55); RED CELL DISTRIBUTION WIDTH 15.3 % (11.5-14.0); SEGMENTED NEUTROPHILS % (AUTO) 55.7 % (42-78); TOTAL CELLS COUNTED % (AUTO) 100 %; WHITE BLOOD COUNT 6.5 10^3/uL (4.0-10.5)
[2019-01-09 10:22] LABS: ALKALINE PHOSPHATASE 94 U/L (38-126); ANION GAP 9 (5-19); ASPARTATE AMINO TRANSFERASE 24 U/L (17-59); BILIRUBIN,DIRECT 0.1 mg/dL (0.0-0.4); BILIRUBIN,TOTAL 0.5 mg/dL (0.2-1.3); BLOOD UREA NITROGEN 31 mg/dL (7-20); C-REACTIVE PROTEIN 10.7 mg/L (<10.0); CALCIUM 9.1 mg/dL (8.4-10.2); CARBON DIOXIDE 28 mmol/L (22-30); CHLORIDE 103 mmol/L (98-107); GLUCOSE 97 mg/dL (75-110); POTASSIUM 4.2 mmol/L (3.6-5.0); TOTAL PROTEIN 7.4 g/dL (6.3-8.2)
[2019-01-09 10:49] LABS: ERYTHROCYTE SEDIMENTATION RATE 60 mm/hr (0-20)
== END ==
LOC: LAB 09:19
PROVIDERS: ATTEND Physician Assistant
DX: M25.50 Pain in unspecified joint (principal)
CPT/HCPCS: 36415; 80053; 85025; 85652; 86140

== ENCOUNTER → 2019-01-13 | Outpatient (CLI) | payer MEDICARE, OTHER ==
--- NOTE | 2019-01-13 13:01 | RADIOLOGY REPORT (SQ) ---
EXAM DESCRIPTION: CT LT LOWER EXTREMITY WITHOUT COMPLETED DATE/TIME: 01/13/2019 8:32 am REASON FOR STUDY: (M25.562)PAIN IN LEFT KNEE M25.562 PAIN IN LEFT KNEE COMPARISON: PET-CT 07/23/2018 TECHNIQUE: CT scan of the left knee performed without intravenous or oral contrast. Images reviewed with soft tissue and bone windows. Reconstructed coronal and sagittal MPR images reviewed. All ángel ges stored on PACS. All CT scanners at this facility use dose modulation, iterative reconstruction, and/or weight based d osing when appropriate to reduce radiation dose to as low as reasonably achievable (ALARA). [facility]: Dose Right [facility]: CareDose [facility]: Dose Right [facility]: Teradose 4D [facility]: [employer] RADIATION DOSE: CT Rad equipment meets quality standard of care and radiation dose reduction techniq ues were employed. CTDIvol: 10.7 mGy. DLP: 283 mGy-cm. mGy. LIMITATIONS: Streak artifact from hardware FINDINGS: A left total knee replacement is present with patellar resurfacing no definite lucency makenna und the prosthesis worrisome for loosening. Normal alignment. [place] bones are osteopenic, age-appr opriate without fracture or lytic or blastic lesion. There is a small suprapatellar knee joint effusion. No gross soft tissue masses in the field of view . IMPRESSION: No acute fracture. No lucency around the left total knee prosthesis worrisome for loose torsten. Small suprapatellar knee joint effusion TECHNICAL DOCUMENTATION: JOB ID: [id number] Quality ID # 436: Final reports with documentation of one or more dose reduction techniques (e.g., Au tomated exposure control, adjustment of the mA and/or kV according to patient size, use of iterative reconstruction technique) 2010 [employer]- All Rights Reserved Reading location - IP/workstation name: [email or web address]
== END ==
LOC: RAD 07:41
PROVIDERS: ATTEND Physician Assistant
DX: M25.462 Effusion, left knee (principal); M25.562 Pain in left knee; Z96.652 Presence of left artificial knee joint

== ENCOUNTER → 2019-05-14 | Outpatient (CLI) | payer MEDICARE, OTHER ==
--- NOTE | 2019-05-14 14:17 | RADIOLOGY REPORT (SQ) ---
EXAM DESCRIPTION: CT LUMBAR SPINE WITHOUT COMPLETED DATE/TIME: 05/14/2019 9:25 am REASON FOR STUDY: M54.5 LOW BACK PAIN M54.5 LOW BACK PAIN COMPARISON: None. TECHNIQUE: Axial images acquired through the lumbar spine without intravenous contrast. Images revi ewed with lung, soft tissue and bone windows. Reconstructed coronal and sagittal MPR images reviewed . All images stored on PACS. All CT scanners at this facility use dose modulation, iterative reconstruction, and/or weight based d osing when appropriate to reduce radiation dose to as low as reasonably achievable (ALARA). [facility]: Dose Right [facility]: CareDose [facility]: Dose Right [facility]: Teradose 4D [facility]: [employer] RADIATION DOSE: CT Rad equipment meets quality standard of care and radiation dose reduction techniq ues were employed. CTDIvol: 32.6 mGy. DLP: 908 mGy-cm. LIMITATIONS: None. FINDINGS: SEGMENTATION: There are 5 lumbar-type vertebral bodies. There is no transition anatomy at the lumbosacral junction. ALIGNMENT: No spondylolisthesis or scoliotic curvature of the lumbar spine. VERTEBRAL BODIES: There is at a minimum partial osseous fusion across the intervertebral disc space a t L3-L4, L4-5 and L5-S1. The lumbar vertebral body heights are preserved. There is no fracture. DISCS: Evaluation is limited due to the absence of intrathecal contrast and the artifact from the met al hardware. The T12-L1, L1-L2 and L2-L3 intervertebral disc spaces are narrowed with evidence of va cuum disc phenomenon. At L1-L2 there is a broad-based disc bulge eccentric to the left that encroach es on the inferior aspect of the neuroforamina and abuts the left L1 nerve root. At L2-L3 there is a posterior osteophytic ridge that encroaches on the inferior aspect of the neuroforamina without appa rent mass effect on the nerve roots or a considerable degree of foraminal stenosis. PEDICLES, TRANSVERSE PROCESSES: Intact. FACETS, POSTERIOR ELEMENTS: There are laminectomy defects at L3-L4, L4-L5 and L5-S1. The facet joint s from L3-L4 to L5-S1 are fused. HARDWARE: Transpedicular and interbody fusion hardware at L3-L4. The hardware is intact. There is n o periprosthetic fracture. VISUALIZED RIBS: No fractures. SOFT TISSUES: Atherosclerotic calcification of the abdominal aorta. OTHER: No other finding. IMPRESSION: Status post transpedicular and interbody fusion at L3-L4 with at a minimum partial osseo us fusion across the intervertebral disc spaces and facet joints from L3-L4 to L5-S1. At L1-L2 there is a broad-based disc bulge eccentric to the left that encroaches on the inferior aspect of the neuro foramina and abuts the left L1 nerve root. At L2-L3 there is a posterior osteophytic ridge that encr oaches on the inferior aspect of the neuroforamina without apparent mass effect on the nerve roots or a considerable degree of foraminal stenosis. TECHNICAL DOCUMENTATION: JOB ID: [id number] Quality ID # 436: Final reports with documentation of one or more dose reduction techniques (e.g., Au tomated exposure control, adjustment of the mA and/or kV according to patient size, use of iterative reconstruction technique) 2010 [employer]- All Rights Reserved Reading location - IP/workstation name: [email or web address]
== END ==
LOC: RAD 08:58
PROVIDERS: ATTEND Physician Assistant
DX: M51.86 Other intervertebral disc disorders, lumbar region (principal); M54.5 Low back pain
CPT/HCPCS: 72131

== ENCOUNTER → 2020-01-18 | Outpatient (CLI) | payer MEDICARE, OTHER ==
[2020-01-18 09:46] LABS: ABSOLUTE BASOPHILS # (AUTO) 0.1 10^3/uL (0.0-0.2); ABSOLUTE EOSINOPHILS # (AUTO) 0.2 10^3/uL (0.0-0.6); ABSOLUTE LYMPHOCYTES (AUTO) 1.7 10^3/uL (0.5-4.7); ABSOLUTE MONOCYTES (AUTO) 1.4 10^3/uL (0.1-1.4); ABSOLUTE NEUT (AUTO) 4.9 10^3/uL (1.7-8.2); BASOPHILS % (AUTO) 0.6 % (0-2); EOSINOPHILS % (AUTO) 2.7 % (0-6); HEMATOCRIT 39.7 % (37.9-51.0); HEMOGLOBIN 13.2 g/dL (13.5-17.0); LYMPHOCYTES % (AUTO) 20.4 % (13-45); MEAN CORPUSCULAR HEMOGLOBIN 32.3 pg (27.0-33.4); MEAN CORPUSCULAR HGB CONC 33.3 g/dL (32.0-36.0); MEAN CORPUSCULAR VOLUME 97 fl (80-97); MONOCYTES % (AUTO) 16.7 % (3-13); PLATELET COUNT 218 10^3/uL (150-450); RED BLOOD COUNT 4.09 10^6/uL (4.35-5.55); SEGMENTED NEUTROPHILS % (AUTO) 59.6 % (42-78); TOTAL CELLS COUNTED % (AUTO) 100 %; WHITE BLOOD COUNT 8.2 10^3/uL (4.0-10.5)
[2020-01-18 10:23] LABS: ERYTHROCYTE SEDIMENTATION RATE 81 mm/hr (0-20)
== END ==
LOC: OD 09:04
PROVIDERS: ATTEND Physician Assistant
DX: T84.032A Mechanical loosening of internal right knee prosthetic joint, initial encounter (principal); X58.XXXA Exposure to other specified factors, initial encounter
CPT/HCPCS: 36415; 85025; 85652; 86140

== ENCOUNTER → 2020-01-23 | Outpatient (CLI) | payer MEDICARE, OTHER ==
--- NOTE | 2020-01-23 12:39 | RADIOLOGY REPORT (SQ) ---
EXAM DESCRIPTION: NM 3 PHASE BONE SCAN IMAGES COMPLETED DATE/TIME: 01/23/2020 11:05 am REASON FOR STUDY: PAIN IN L KNEE M25.562 PAIN IN LEFT KNEE COMPARISON: CT of the left knee 01/13/2019 RADIONUCLIDE AND DOSE: 20 millicuries Tc99m MDP. The route of agent administration: Intravenous. ADDITIONAL DRUGS AND DOSES: None. TECHNIQUE: Following injection of the radiopharmaceutical, serial blood flow images acquired. Equil ibrium blood pool images then acquired. Routine delayed images at 3 hours acquired of the areas of c linical concern with additional focused images as needed. AREA OF INTEREST: Left knee LIMITATIONS: None. FINDINGS: VASCULAR FLOW IMAGES: No asymmetry or focal areas of hyperemia. BLOOD POOL IMAGES: No asymmetry or focal areas of soft-tissue hyper-perfusion. BONES: Delayed images show greater uptake in the left patella than the right. KIDNEYS: Kidneys not imaged. OTHER: Bilateral knee arthroplasties. IMPRESSION: There is slightly greater uptake in the left patella than the right on the delayed image s. No significant hyperemia or increased blood pool activity on the left compared to the right. COMMENT: Quality measure 147: Current bone scan is compared with any available plain radiographs, p rior bone scans, and CT/MRI. TECHNICAL DOCUMENTATION: JOB ID: [id number] 2010 [employer]- All Rights Reserved Reading location - IP/workstation name: [email or web address]
== END ==
LOC: RAD 07:28
PROVIDERS: ATTEND Physician Assistant
DX: M25.562 Pain in left knee (principal); Z96.653 Presence of artificial knee joint, bilateral
CPT/HCPCS: 78315; A9503; Q9969

== ENCOUNTER → 2020-02-12 | Outpatient (CLI) | payer MEDICARE, OTHER ==
--- NOTE | 2020-02-12 12:44 | ER [facility] ASSESSMENT REPORT ---
Intake - In the Last 14 days Have you traveled outside [place]?: No Have you been in close contact with someone CONFIRMED: No Worked in Healthcare?: No - Symptoms Subjective Fever(Flint feverish): No Chills: No Muscule Aches: No Runny Nose: No Sore Throat: No Cough (New or worsening chronic cough): Yes Shortness of breath: Yes Nausea or Vomiting: No Headache: No Abdominal Pain: No Diarrhea(3 or more loose stools in last 24 hours): No - Do you have any of the following Chronic lung disease: Asthma or emphysema or COPD: Yes Chronic Lung Disease Comment: copd Cystic Fibrosis: No Diabetes: No High Blood Pressure: Yes Cardiovascular Disease: Yes Cardiovascular Disease Comment: pacemaker Chronic Kidney Disease: No Chronic Liver Disease: No Chronic blood disorder like Sickle Cell Disease: No Weak immune system due to disease or medication: No Neurologic condition that limits movement: Yes Neurological Condition Comment: nerve damage Developmental delay - Moderate to Severe: No Recent (within past 2 weeks) or current : No Morbid Obesity (>100 pounds over ideal weight): No - Objective Temperature: 98.1 F Pulse Rate: 64 Respiratory Rate: 18 Blood Pressure: 124/70 O2 Sat by Pulse Oximetry: 91 Objective: Given above, testing performed: If Testing Performed: Test Specimen Type Sent to General - General Information source: Patient Notes: Patient presents to the [facility] for screening for the coronavirus. Patient reports cough that is occasionally productive. Patient does have a history of COPD and is a former smoker. - Related Data Allergies/Adverse Reactions: clonidine Allergy (Severe, Verified 08/25/18 08:36) dicyclomine HCl [From Bentyl] Allergy (Severe, Verified 08/25/18 08:36) TAPE Adverse Reaction (Uncoded 08/25/18 08:36) Past Medical History - General Information source: Patient - Social History Smoking Status: Former Smoker Family History: Reviewed & Not Pertinent - Past Medical History Cardiac Medical History: Reports: Hx Atrial Fibrillation - Paroxysmal atrial flutter, Hx Coronary Artery Disease - Last PTCA done in October of this year, Hx Hypercholesterolemia, Hx Hypertension - off meds per pcp Comment Only: Hx Heart Attack - HAD PACEMAKER IN 04/25/16 Pulmonary Medical History: Reports: Hx Bronchitis, Hx COPD Denies: Hx Asthma, Hx Pneumonia Neurological Medical History: Denies: Hx Cerebrovascular Accident, Hx Seizures Renal/ Medical History: Denies: Hx Peritoneal Dialysis GI Medical History: Reports: Hx Gastroesophageal Reflux Disease. Denies: Hx Hepatitis, Hx Hiatal Hernia, Hx Ulcer Musculoskeletal Medical History: Reports Hx Arthritis Psychiatric Medical History: Denies: Hx Depression Infectious Medical History: Denies: Hx Hepatitis Past Surgical History: Reports: Hx Cardiac Surgery - 4 stents. most recent October 2015, watchman procedure, Hx Cholecystectomy, Hx Open Heart Surgery, Hx Orthopedic Surgery - bilat hips, rotator cuffs, back, knees, neck, carpal tunnel, big toe, b/l w, Hx Tonsillectomy. Denies: Hx Pacemaker Physical Exam - Notes Notes: The patient was evaluated during the global Covid 19 pandemic, and that diagnosis was suspected/considered upon their initial presentation. Their praful luation, treatment and testing was consistent with current guidelines for patients who present with complaints or symptoms that may be related to Covid 19. Full physical exam could not be performed due to covid 19 isolation protocols. Constitutional: Nontoxic appearance, no acute distress Eyes: Nonicteric, extraocular movements intact, sclera clear Cardiovascular: Heart rate and rhythm regular, no JVD Respiratory: Occasional nonproductive cough, scattered rhonchi with coarse wheezing, nonlabored breathing, no use of accessory muscles, no tachypnea Gastrointestinal: Abdomen not distended Muculoskeletal: Moves all extremities well Skin: Normal color Neuro: Awake alert oriented, normal speech Psych: Normal mood and affect Diagnostic Results Laboratory Results: Patient presents with upper respiratory symptoms worrisome for possible Covid 19. Patient appears suitable for discharge as vital signs are stable and patient is nontoxic in appearance. Good return precautions have been discussed with patient, patient verbalized understanding and is agreeable with discharge plan of care at this time. Patient Education/Counseling Counseling/Education: Patient was provided with discharge information including: As a person under investigation for Covid 19, the [place] department of Health and Human Services, division of public health advises you to adhere to the following guidance until your test results are reported to you. If your test result is positive, you will receive additional information from your provider and your local health department at that time. Remain at home until you are cleared by the health provider or public health authorities. Keep a log of visitors to your home, notify any visitors to your home of your isolation status. If you plan to move to a new address or leave the county, notify the local health department in your County. Call your doctor or seek care if you have an urgent medical need. Before seeking medical care, call ahead to get instructions from the provider before arriving at the medical office clinic or hospital. Notify them that you are being tested for the virus that causes Covid 19 so that arrangements can be made, as necessary, to prevent transmission to others in the healthcare setting. Next, notify the local health department in your county. If a medical emergency arises and you need to call 911, inform the first responders that you are being tested for the virus that causes Covid 19. Next, notify the local health department in your county. [facility] Discharge - Discharge Clinical Impression: Encounter for screening laboratory testing for COVID-19 virus Condition: Stable Disposition: Home; Selfcare
[2020-02-12 12:45] VITALS: BP 124/70
== END ==
LOC: RDC 12:13
PROVIDERS: ATTEND Nurse Practitioner Family
DX: Z20.828 Contact with and (suspected) exposure to other viral communicable diseases (principal)
CPT/HCPCS: U0003; C9803; 87635; 99201; 99211

== ENCOUNTER → 2020-02-13 | Outpatient (CLI) | payer MEDICARE, OTHER ==
[2020-02-13 11:14] LABS: ANION GAP 11 (5-19); BLOOD UREA NITROGEN 24 mg/dL (7-20); CARBON DIOXIDE 28 mmol/L (22-30); CHLORIDE 102 mmol/L (98-107); GLUCOSE 101 mg/dL (75-110); POTASSIUM 4.1 mmol/L (3.6-5.0)
== END ==
LOC: OD 09:41
PROVIDERS: ATTEND Internal Medicine Critical Care Medicine
DX: J15.1 Pneumonia due to Pseudomonas (principal); I25.10 Atherosclerotic heart disease of native coronary artery without angina pectoris; R91.8 Other nonspecific abnormal finding of lung field; E03.9 Hypothyroidism, unspecified; J42 Unspecified chronic bronchitis; M54.9 Dorsalgia, unspecified; R05 Cough; G47.34 Idiopathic sleep related nonobstructive alveolar hypoventilation; G47.33 Obstructive sleep apnea (adult) (pediatric); I48.92 Unspecified atrial flutter
CPT/HCPCS: 36415; 80048; 87070; 87077; 87205

== ENCOUNTER → 2020-03-10 | Outpatient (CLI) | payer MEDICARE, OTHER ==
--- NOTE | 2020-03-10 09:27 | RADIOLOGY REPORT (SQ) ---
EXAM DESCRIPTION: CT CHEST WITHOUT IMAGES COMPLETED DATE/TIME: 03/10/2020 8:05 am REASON FOR STUDY: R91.8 OTHER NONSPECIFIC ABNORMAL FINDING OF LUNG FIELD R91.8 OTHER NONSPECIFIC AB NORMAL FINDING OF LUNG FIELD COMPARISON: CT of the chest from 08/22/2018, PET from 07/23/2018 and CTA of the chest from 05/26/2011 P TECHNIQUE: CT scan performed of the chest without intravenous contrast. Images reviewed with lung, soft tissue and bone windows. Reconstructed coronal and sagittal MPR images reviewed. All images st ored on PACS. All CT scanners at this facility use dose modulation, iterative reconstruction, and/or weight based d osing when appropriate to reduce radiation dose to as low as reasonably achievable (ALARA). [facility]: Dose Right [facility]: CareDose [facility]: Dose Right [facility]: Teradose 4D [facility]: [employer] RADIATION DOSE: CT Rad equipment meets quality standard of care and radiation dose reduction techniq ues were employed. CTDIvol: 17.5 mGy. DLP: 767 mGy-cm. LIMITATIONS: No technical limitations. FINDINGS: LUNGS AND PLEURA: The trachea and main bronchi are patent. There is mild bronchial wall t hickening associated with bronchiolectasis and subsegmental mucous plugs. The opacities in the poste rior apical segment of the left upper lobe described on the CT from 08/22/2018 have resolved. The per ibronchial nodular opacities scattered throughout both lungs (for reference refer to opacities in the right upper lobe on image 37 of series 4 and the opacities in the posterior basal segment of the lef t lower lobe on image 113 of series 4) are unchanged. There is no acute consolidation, ground-glass opacification, pleural effusion or pneumothorax. HILAR AND MEDIASTINAL STRUCTURES: Stable nonenlarged based on size criteria right upper peritracheal, right lower paratracheal, left lower paratracheal, AP window and subcarinal lymph nodes. Evaluation of the jasper for adenopathy is limited by the absence of intravenous contrast. There is no pneumomed iastinum or mediastinal hematoma. HEART AND VASCULAR STRUCTURES: There is an occlusion device within the left atrial appendage and ther e is moderate to severe atherosclerotic calcification of the coronary arteries and mitral annulus. T here is no pericardial effusion. The thoracic aorta is normal in caliber ; there is no thoracic intr amural hematoma. UPPER ABDOMEN: Cholecystectomy clips in hiatal hernia. THYROID AND OTHER SOFT TISSUES: No adenopathy or mass. BONES: Arthroplasty hardware in the left shoulder and osteoarthrosis of the right glenohumeral, right acromioclavicular and bilateral sternoclavicular joints. There are chronic fracture deformities of the right posterior 7th and 8th ribs. There is no acute fracture. HARDWARE: None in the chest. OTHER: No other findings. IMPRESSION: 1. Mild bronchial wall thickening associated with bronchiolectasis, subsegmental mucous plugs, and bilateral peribronchial nodular opacities. The constellation of findings could represent an infectious or inflammatory process with endobronchial dissemination. 2. Other secondary findings as detailed above. TECHNICAL DOCUMENTATION: JOB ID: [id number] Quality ID # [id number]: Final reports with documentation of one or more dose reduction techniques (e.g., Au tomated exposure control, adjustment of the mA and/or kV according to patient size, use of iterative reconstruction technique) 2010 [employer]- All Rights Reserved Reading location - IP/workstation name: [email or web address]
== END ==
LOC: RAD 07:57
PROVIDERS: ATTEND Internal Medicine Critical Care Medicine
DX: J47.9 Bronchiectasis, uncomplicated (principal); R91.8 Other nonspecific abnormal finding of lung field; J15.1 Pneumonia due to Pseudomonas; J42 Unspecified chronic bronchitis
CPT/HCPCS: 71250